=== PATIENT | male | born 1995 | race Caucasian/White ===

== ENCOUNTER 2016-06-06 03:21 | Emergency (ER) | payer BC ==
[~2016-06-06] VITALS: Ht 175.3 cm; Wt 84.0 kg
[2016-06-06 03:36] VITALS: TEMP 36.8; Ht 175.3 cm; Wt 84.0 kg
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
[2016-06-06 03:47] VITALS: O2SAT 99
[2016-06-06 03:52] LABS: HEMATOCRIT 44.2 % (42-52); MEAN CELL VOLUME 88.6 fL (80-100); MEAN CORPUSCULAR HEMOGLOBIN 32.3 pg (25-34); MEAN CORPUSCULAR HGB CONC 36.4 g/dl (32-36); MEAN PLATELET VOLUME 12.6 fL (7.4-10.4); PLATELET COUNT 183 K/uL (130-400); RED BLOOD COUNT 4.99 M/uL (4.7-6.1); WHITE BLOOD COUNT 13.44 K/uL (4.8-10.8)
[2016-06-06 04:22] LABS: ALKALINE PHOSPHATASE 56 U/L (45-117); ALT/SGPT 31 U/L (12-78); AST/SGOT 28 U/L (15-37); BLOOD UREA NITROGEN 11 mg/dl (7-18); BUN/CREATININE RATIO 12.2 (10-20); CARBON DIOXIDE 29 mmol/L (21-32); CHLORIDE 106 mmol/L (98-107); CREATININE 0.92 mg/dl (0.60-1.40); GLUCOSE 89 mg/dl (70-99); POTASSIUM 3.7 mmol/L (3.5-5.1); SODIUM 144 mmol/L (136-145)
[2016-06-06 05:07] VITALS: BP 133/89; PULSE 102; O2SAT 99
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
--- NOTE | 2016-06-06 08:16 | DIAGNOSTIC IMAGING REPORT ---
CT OF THE CERVICAL SPINE WITHOUT CONTRAST CLINICAL HISTORY: fall -evaluate for c-spine injury COMPARISON STUDY: No previous studies for comparison. TECHNIQUE: Helical axial images of the cervical spine were obtained without IV contrast. Sagittal and coronal reconstructions were viewed. FINDINGS: A nondisplaced right occipital bone calvarial fracture is noted. There is straightening of the normal cervical lordosis. Alignment is otherwise anatomic. Vertebral body heights are maintained. There is no cervical spine fracture. IMPRESSION: 1. No acute cervical spine fracture or subluxation. 2. Acute nondisplaced right occipital bone fracture. Electronically signed by: Missael Rae M.D. 06/06/2016 8:14 AM Dictated Date/Time: 06/06/2016 8:12 AM
== END 2016-06-06 05:19 | disposition short-term general hospital (02) ==
LOC: C.EDB 03:24
DX: S06.6X0A Traumatic subarachnoid hemorrhage without loss of consciousness, initial encounter (principal); S02.119A Unspecified fracture of occiput, initial encounter for closed fracture; Y04.2XXA Assault by strike against or bumped into by another person, initial encounter; T51.91XA Toxic effect of unspecified alcohol, accidental (unintentional), initial encounter; Y92.89 Other specified places as the place of occurrence of the external cause